=== PATIENT | female | born 1970 | race Caucasian/White ===

== ENCOUNTER → 2020-12-20 | Day surgery (SDC) | payer OTHER ==
[~2020-12-20] MED LIST: Albumin 25% 0 ML ONE; Lidocaine 1% PF 5 ML VIAL ONE; Sodium Bicarbonate 2.5 MEQ/5 ML VIAL ONE
== END ==
LOC: CSHRAD 12:45
PROVIDERS: ATTEND Internal Medicine Gastroenterology
DX: R18.8 Other ascites (principal)
CPT/HCPCS: 76705; P9047

== ENCOUNTER → 2021-01-17 | Day surgery (SDC) | payer OTHER ==
[~2021-01-17] MED LIST changes: -Albumin 25% 0 ML ONE; +Albumin 25% 100 ML ONE
== END ==
LOC: CSHRAD 13:05
PROVIDERS: ATTEND Internal Medicine Gastroenterology
DX: R18.8 Other ascites (principal)
CPT/HCPCS: 76705; P9047

== ENCOUNTER 2021-08-17 16:29 | Outpatient (CLI) | payer OTHER ==
[2021-08-18 18:15] LABS: SARS-CoV-2 PCR by NAA Not Detected (NotDetected)
== END 2021-08-17 16:30 | disposition home or self-care (01) ==
LOC: CSHLAB 16:29
PROVIDERS: ATTEND Internal Medicine Gastroenterology
DX: Z20.822 Contact with and (suspected) exposure to COVID-19 (principal); R18.8 Other ascites; K74.60 Unspecified cirrhosis of liver
CPT/HCPCS: U0003; U0005

== ENCOUNTER 2021-08-22 06:12 | Day surgery (SDC) | payer OTHER ==
[2021-08-21 13:52] VITALS: BMI 25.7
[2021-08-22] MEDS ORDERED: Lidocaine 1% MPF 2 ML VIAL ONE (06:52)
[2021-08-22] MEDS ORDERED: Glycopyrrolate 0.2 MG/ML 5 ML SYRINGE ONE (07:30)
[2021-08-22] MEDS ORDERED: PROPOFOL 40 ML ONE (07:30)
[2021-08-22] MEDS ORDERED: Lidocaine 1% PF 5 ML VIAL ONE (07:30)
[2021-08-22] MEDS ORDERED: PHENYLEPHRINE-NS 100 MCG/ML 10 ML SYRINGE ONE (07:31)
== END 2021-08-22 09:08 | disposition home or self-care (01) ==
LOC: CSHSDC 06:12
PROVIDERS: ATTEND Internal Medicine Gastroenterology
PROC: 0DB68ZX Excision of Stomach, Via Natural or Artificial Opening Endoscopic, Diagnostic (ICD-10-PCS; principal; 2021-08-22)
DX: K76.6 Portal hypertension (principal); K31.89 Other diseases of stomach and duodenum; K29.60 Other gastritis without bleeding; K74.60 Unspecified cirrhosis of liver; I10 Essential (primary) hypertension; K21.9 Gastro-esophageal reflux disease without esophagitis; K58.9 Irritable bowel syndrome, unspecified; Z85.3 Personal history of malignant neoplasm of breast; Z92.3 Personal history of irradiation
CPT/HCPCS: 88305; 88312; J2704

== ENCOUNTER 2023-02-20 07:03 | Day surgery (SDC) | payer OTHER ==
[2023-02-19 12:00] VITALS: BMI 26.2
== END 2023-02-20 12:50 | disposition home or self-care (01) ==
LOC: CSHSDC 07:03
PROVIDERS: ATTEND Internal Medicine Gastroenterology
PROC: 0DB98ZX Excision of Duodenum, Via Natural or Artificial Opening Endoscopic, Diagnostic (ICD-10-PCS; principal; 2023-02-20)
DX: K74.60 Unspecified cirrhosis of liver (principal); K29.70 Gastritis, unspecified, without bleeding; K31.89 Other diseases of stomach and duodenum; K76.6 Portal hypertension; I10 Essential (primary) hypertension; F41.8 Other specified anxiety disorders; C50.919 Malignant neoplasm of unspecified site of unspecified female breast
CPT/HCPCS: 76700; 77066; 88305; G0279